=== PATIENT | female | born 1965 | race Caucasian/White ===

== ENCOUNTER 2016-10-09 19:21 | Emergency (ER) | payer OTHER ==
[2016-10-09 20:05] LABS: ABSOLUTE NEUTROPHIL COUNT 4.9 K/mm3 (1.8-7.7); BASO # 0.1 K/mm3 (0.0-0.2); BASO % 0.6 % (0.2-1.0); EOS # 0.2 (0.0-0.5); HEMATOCRIT 31.9 % (37.0-47.0); HEMOGLOBIN 9.2 gm/l (12.0-16.0); IMM NEUT% 0.3 % (0-1); LYMPH # 2.3 (1.0-4.8); LYMPH % 29.2 % (15-45); MEAN CELL VOLUME 72.5 fl (81.0-99.0); MEAN CORPUSCULAR HEMOGLOBIN 20.9 pg (27.0-31.0); MEAN CORPUSCULAR HGB CONC 28.8 g/dl (33.0-37.0); MEAN PLATELET VOLUME 9.1 fl (7.4-10.4); MONO # 0.5 (0.0-0.8); MONO % 6.6 % (4-12); NEUT % 61.3 % (43-75); PLATELET COUNT 348 K/mm3 (130-400)
[2016-10-09 20:18] LABS: ALB/GLOB RATIO 1.1 (>1.0); ALBUMIN 3.4 gm/dL (3.5-5.7); CALCIUM 8.6 mg/dL (8.6-10.3)
[2016-10-09 20:25] LABS: TROPONIN I < 0.01 ng/ml (0.0-0.06)
[2016-10-09 20:35] LABS: THYROID STIMULATING HORMONE 1.69 uIU/ml (0.34-5.60)
--- NOTE | 2016-10-09 20:37 | RAD ---
Name: ROSAS SALAS Exam: Two-view chest Comparison: None Clinical history: Substernal chest pain Findings: 2 views of the chest are submitted. The heart mediastinum and hilar structures are within normal limits. There is no failure, infiltrate, pleural effusion or pneumothorax. Regional skeleton is within normal limits. Impression: No acute cardiopulmonary process
[2016-10-09 20:52] LABS: URINE BILIRUBIN NEGATIVE (NEGATIVE); URINE BLOOD 3+ (NEGATIVE); URINE GLUCOSE (UA) NEGATIVE (NEGATIVE); URINE LEUKOCYTE ESTERASE TRACE (NEGATIVE); URINE NITRITE NEGATIVE (NEGATIVE); URINE PROTEIN 1+ (NEGATIVE); URINE UROBILINOGEN NORMAL (0-1 mg/dl)
[2016-10-09 20:54] LABS: HCG,QUALITATIVE URINE NEGATIVE
[2016-10-09 20:59] LABS: URINE APPEARANCE CLEAR; URINE COLOR AMBER
[2016-10-09 21:04] LABS: URINE RBC 0-1 /hpf; URINE WBC 0-1 /hpf
[2016-10-09 21:05] LABS: URINE BACTERIA 1+
[2016-10-09 21:06] LABS: PLATELET ESTIMATE NORMAL (NORMAL)
== END 2016-10-09 21:15 | disposition home or self-care (01) ==
LOC: ED 19:21
DX: R07.9 Chest pain, unspecified (principal); D64.9 Anemia, unspecified; T88.7XXA Unspecified adverse effect of drug or medicament, initial encounter; T50.995A Adverse effect of other drugs, medicaments and biological substances, initial encounter; Y92.9 Unspecified place or not applicable